=== PATIENT | male | born 1990 | race Caucasian/White ===

== ENCOUNTER 2016-09-17 08:35 | Observation (INO) | payer BC ==
[~2016-09-17] VITALS: Ht 185.4 cm; Wt 108.9 kg
[2016-09-17 09:46] LABS: HEMOGLOBIN 14.7 gm/dl (14.0-17.5); RED BLOOD COUNT 4.78 M/UL (4.20-5.50); WHITE BLOOD COUNT 9.5 K/UL (4.5-11.0)
[2016-09-17 10:03] LABS: BUN/CREATININE RATIO 14 (0-10)
[2016-09-17] MEDS ORDERED: EPINEPHRIN0.3 MG/0.3 INJ (18:04)
[2016-09-17] MEDS ORDERED: LORADAMED10 MG PO (18:05)
[2016-09-17] MEDS ORDERED: VENTOLIN HFA 66.7 GM INH (18:05)
[2016-09-18 06:30] LABS: HEMOGLOBIN 13.3 gm/dl (14.0-17.5); WHITE BLOOD COUNT 9.9 K/UL (4.5-11.0)
[2016-09-18 06:31] LABS: RED BLOOD COUNT 4.3 M/UL (4.20-5.50)
[2016-09-18 06:52] LABS: BUN/CREATININE RATIO 13 (0-10)
[2016-09-18] MEDS ORDERED: NORCO 7.5-3251 EACH PO (12:18)
== END 2016-09-18 14:50 | disposition home or self-care (01) ==
LOC: ER1 08:35 → ZEROF 10:13 → MED SURG 4 15:09
PROVIDERS: Specialist/Technologist Athletic Trainer; ADMIT Surgery
PROC: 0DTJ4ZZ Resection of Appendix, Percutaneous Endoscopic Approach (ICD-10-PCS; principal; 2016-09-17 13:08)
DX: K35.80 Unspecified acute appendicitis (principal); J45.909 Unspecified asthma, uncomplicated; G43.909 Migraine, unspecified, not intractable, without status migrainosus; F17.210 Nicotine dependence, cigarettes, uncomplicated; Z79.899 Other long term (current) drug therapy
CPT/HCPCS: 36415; 80048; 80053; 83690; 85025; 85027; 85610; 85730; 96361; 96374; 96375; 96376; 99285; G0378; J1100; J1335; J1650; J1885; J2250; J2270; J2405; J2710; J3010; J7030; J7050

== ENCOUNTER 2016-09-23 07:12 | Emergency (ER) | payer BC ==
[~2016-09-23 07:12] MED LIST: EPINEPHRIN0.3 MG/0.3 INJ; LORADAMED10 MG PO; NORCO 7.5-3251 EACH PO; VENTOLIN HFA 66.7 GM INH
[2016-09-23 08:08] LABS: RED BLOOD COUNT 5.28 M/UL (4.20-5.50); WHITE BLOOD COUNT 5.5 K/UL (4.5-11.0)
[2016-09-23 08:09] LABS: HEMOGLOBIN 16.2 gm/dl (14.0-17.5)
[2016-09-23 08:27] LABS: BUN/CREATININE RATIO 17 (0-10)
== END 2016-09-23 09:10 | disposition home or self-care (01) ==
LOC: ER1 07:12
PROVIDERS: Emergency Medicine
DX: T81.31XA Disruption of external operation (surgical) wound, not elsewhere classified, initial encounter (principal); R79.89 Other specified abnormal findings of blood chemistry; Z90.49 Acquired absence of other specified parts of digestive tract; Y83.8 Other surgical procedures as the cause of abnormal reaction of the patient, or of later complication, without mention of misadventure at the time of the procedure
CPT/HCPCS: 36415; 80053; 85025; 85610; 85730; 99283

== ENCOUNTER 2016-09-23 16:09 | Emergency (ER) | payer BC ==
[2016-09-23 17:39] LABS: HEMOGLOBIN 15.9 gm/dl (14.0-17.5); RED BLOOD COUNT 5.17 M/UL (4.20-5.50); WHITE BLOOD COUNT 7.5 K/UL (4.5-11.0)
[2016-09-23 19:11] LABS: BUN/CREATININE RATIO 16 (0-10)
== END 2016-09-23 19:11 | disposition home or self-care (01) ==
LOC: ER1 16:09
PROVIDERS: Emergency Medicine; Physician Assistant Medical
DX: Z48.01 Encounter for change or removal of surgical wound dressing (principal); R94.5 Abnormal results of liver function studies; F17.210 Nicotine dependence, cigarettes, uncomplicated; Z90.89 Acquired absence of other organs
CPT/HCPCS: 36415; 80053; 82150; 83690; 85025; 99283

== ENCOUNTER 2020-11-04 07:07 | Emergency (ER) | payer BC ==
[~2020-11-04 07:07] MED LIST changes: +BENTYL 20MG TAB20 MG PO; +CARAFATE1 GM PO; +CEFUROXIME500 MG PO; +PHENERGAN 25 MG25 M1 PO; +PROTONIX40 MG PO; +ZOFRAN ODT 4 MG4 MG PO; +ZOFRAN4 MG PO
[2020-11-04 08:18] LABS: HEMOGLOBIN 17.2 gm/dl (14.0-17.5); RED BLOOD COUNT 5.49 M/UL (4.20-5.50); WHITE BLOOD COUNT 6.2 K/UL (4.5-11.0)
[2020-11-04 08:47] LABS: BUN/CREATININE RATIO 9 (0-10)
[2020-11-04] MEDS ORDERED: VIBRAMYCIN100 MG PO (10:08)
== END 2020-11-04 10:24 | disposition home or self-care (01) ==
LOC: ER1 07:07
PROVIDERS: Physician Assistant
DX: R10.32 Left lower quadrant pain (principal); R59.9 Enlarged lymph nodes, unspecified; Z90.89 Acquired absence of other organs; F17.200 Nicotine dependence, unspecified, uncomplicated; Z20.822 Contact with and (suspected) exposure to COVID-19
CPT/HCPCS: 0240U; 80053; 81001; 85025; 87081; 87880; 99284; Q9967

== ENCOUNTER 2020-11-09 17:16 | Emergency (ER) | payer BC ==
[~2020-11-09 17:16] MED LIST changes: +VIBRAMYCIN100 MG PO
[2020-11-09] MEDS ORDERED: AMOXICILLIN875 MG PO (18:35)
[2020-11-09] MEDS ORDERED: IBUPROFEN800 MG PO (18:35)
[2020-11-09] MEDS ORDERED: ONDANSETRON ODT4 MG SL (18:35)
[2020-11-09] MEDS ORDERED: CORTISPORIN OTI10 M1 EARLF (18:35)
[2020-11-09 19:16] LABS: BUN/CREATININE RATIO 9 (0-10)
== END 2020-11-09 20:17 | disposition home or self-care (01) ==
LOC: ER1 17:16
PROVIDERS: Physician Assistant
DX: K05.10 Chronic gingivitis, plaque induced (principal); H66.92 Otitis media, unspecified, left ear; R11.2 Nausea with vomiting, unspecified; R19.7 Diarrhea, unspecified; F17.200 Nicotine dependence, unspecified, uncomplicated; Z79.899 Other long term (current) drug therapy
CPT/HCPCS: 80053; 96372; 99284; J0561; J7030

== ENCOUNTER 2021-09-05 19:19 | Emergency (ER) | payer BC ==
[~2021-09-05 19:19] MED LIST changes: +AMOXICILLIN875 MG PO; +CORTISPORIN OTI10 M1 EARLF; +IBUPROFEN800 MG PO; +ONDANSETRON ODT4 MG SL
[2021-09-06] MEDS ORDERED: HYDROCODON-ACE1 EAC4 PO (01:30)
[2021-09-06] MEDS ORDERED: CEPHALEXIN500 M1 PO (01:43)
[2021-09-06] MEDS ORDERED: IBUPROFEN600 MG PO (01:43)
[2021-09-06] MEDS ORDERED: BACTROBAN OINT22 GM EXT (01:43)
== END 2021-09-06 01:59 | disposition home or self-care (01) ==
LOC: ER1 19:19
DX: S51.012A Laceration without foreign body of left elbow, initial encounter (principal); S83.91XA Sprain of unspecified site of right knee, initial encounter; F17.210 Nicotine dependence, cigarettes, uncomplicated; V86.56XA Driver of dirt bike or motor/cross bike injured in nontraffic accident, initial encounter
CPT/HCPCS: 12001; 70450; 70486; 72125; 73080; 73564; 73610; 99284

== ENCOUNTER → 2021-09-21 | Outpatient (CLI) | payer BC ==
[~2021-09-21] MED LIST changes: +BACTROBAN OINT22 GM EXT; +CEPHALEXIN500 M1 PO; +HYDROCODON-ACE1 EAC4 PO; +IBUPROFEN600 MG PO
== END ==
LOC: KOH-I 10:45
DX: M25.461 Effusion, right knee (principal); M23.91 Unspecified internal derangement of right knee; M25.561 Pain in right knee; S83.519A Sprain of anterior cruciate ligament of unspecified knee, initial encounter; S83.231A Complex tear of medial meniscus, current injury, right knee, initial encounter; S83.271A Complex tear of lateral meniscus, current injury, right knee, initial encounter; S83.411A Sprain of medial collateral ligament of right knee, initial encounter; S82.141A Displaced bicondylar fracture of right tibia, initial encounter for closed fracture; V86.96XA Unspecified occupant of dirt bike or motor/cross bike injured in nontraffic accident, initial encounter
CPT/HCPCS: 73721